=== PATIENT | female | born 1970 | race African-American/Black ===

== ENCOUNTER 2020-07-09 16:48 | Emergency (ER) | payer OTHER ==
[~2020-07-09] VITALS: Ht 154.9 cm; Wt 87.5 kg
[2020-07-09 19:48] LABS: URINE BILIRUBIN NEGATIVE (Negative); URINE BLOOD NEGATIVE (Negative); URINE CLARITY CLEAR; URINE COLOR YELLOW; URINE GLUCOSE-RANDOM* NEGATIVE (Negative); URINE KETONES NEGATIVE (Negative); URINE LEUKOCYTES-REFLEX NEGATIVE (Negative); URINE NITRITE-REFLEX NEGATIVE (Negative); URINE PROTEIN (DIPSTICK) NEGATIVE (Negative); URINE SPECIFIC GRAVITY <= 1.005 (1.005-1.035); URINE UROBILINOGEN 0.2 E.U./dl (0.2-1.0)
[2020-07-09 19:51] LABS: HEMATOCRIT 37.1 % (37.0-47.0); HEMOGLOBIN 12.2 gm/dL (12.0-15.0); MCV 87.9 fL (80.0-100.0); PLATELET COUNT 311 thou/uL (150-400); RBC 4.22 mil/uL (4.20-5.00); RDW 15.3 % (10.5-14.5); WBC 9.4 thou/uL (4.0-11.0)
[2020-07-09 20:03] LABS: ANION GAP 12 mmol/L (7-16); BUN 9 mg/dL (7-18); CALCIUM 9.5 mg/dL (8.5-10.1); CHLORIDE 101 mmol/L (98-107); CO2 25 mmol/L (21-32); GLUCOSE 102 mg/dL (74-106); SODIUM 138 mmol/L (136-145)
[2020-07-09 20:06] LABS: POTASSIUM 2.9 mmol/L (3.5-5.1)
[2020-07-09 20:13] LABS: ALBUMIN 3.5 g/dL (3.4-5.0); SGOT 13 U/L (15-37); SGPT 17 U/L (30-65); TOTAL BILIRUBIN 0.3 mg/dL (0.2-1.0); TOTAL PROTEIN 7.7 g/dL (6.4-8.2); TROPONIN-I <0.06 ng/mL (<0.06)
[2020-07-09] MEDS ORDERED: K-DUR 20 MEQ T20 MEQ PO (21:10)
[2020-07-09 21:12] LABS: ABSOLUTE NEUTROPHILS 5.3 thou/uL (1.4-8.2)
[2020-07-09 23:06] VITALS: BP 120/73
--- NOTE | 2020-07-12 07:18 | EKG ---
[facility] [address] [place] [address] ELECTROCARDIOGRAM REPORT Name: ROSY GUTIERREZ Room #: DEP MAUREEN Curran#: [id number] Admission: 07/09/20 Attend Phys: Discharge: 07/09/20 Date of : 74 Report #: [id number] <ELECTRONICALLY SIGNED> By: Jason Chamorro MD, FACC 07/12/20 0718 07 07 Jason Chamorro MD, FACC /EPI
== END 2020-07-09 23:08 | disposition home or self-care (01) ==
LOC: ER 16:48
PROVIDERS: Physician Assistant
DX: H93.13 Tinnitus, bilateral (principal); E87.6 Hypokalemia; R42 Dizziness and giddiness; I10 Essential (primary) hypertension; F17.210 Nicotine dependence, cigarettes, uncomplicated